=== PATIENT | male | born 1975 | race Caucasian/White ===

== ENCOUNTER 2017-05-26 22:10 | Emergency (ER) | payer MEDICAID, OTHER ==
[~2017-05-26] VITALS: Ht 180.3 cm; Wt 100.2 kg
[2017-05-26 22:14] VITALS: BP_SYST 147
[2017-05-27 00:40] VITALS: BP_SYST 141
== END 2017-05-27 00:40 | disposition home or self-care (01) ==
LOC: SED 22:10
DX: J06.9 Acute upper respiratory infection, unspecified (principal); R03.0 Elevated blood-pressure reading, without diagnosis of hypertension; Z90.89 Acquired absence of other organs
CPT/HCPCS: 36415; 71045; 86710; 99285

== ENCOUNTER 2020-06-15 20:15 | Emergency (ER) | payer OTHER ==
[~2020-06-15] VITALS: Ht 180.3 cm; Wt 104.3 kg
[2020-06-15 20:15] VITALS: BP_SYST 150
--- NOTE | 2020-06-15 20:16 | NUR ---
Came in ER ambulatory this 45 bj old male,AAOX4, breathing spontaneously at room air, not in distress noted, With chief compliants of syncope attack today, known PTSD and thyroid problem. Initial vital signs taken and recorded, stable.
--- NOTE | 2020-06-15 20:41 | NUR ---
Seen and examined by Dr. Sy
--- NOTE | 2020-06-15 20:41 | NUR ---
Patient to ER bed 1 to gown for evaluation. Side rails up. Report given to Tip.
[2020-06-15 20:59] LABS: BASOPHILS % (AUTO) 0.5 % (0.0-2.0); EOSINOPHILS # (AUTO) 0.2 K/uL (0.0-0.4); EOSINOPHILS % (AUTO) 2.1 % (0.0-4.0); HEMATOCRIT 45.3 % (36-54); HEMOGLOBIN 15.4 g/dL (14.0-18.0); LYMPHOCYTES % (AUTO) 32.1 % (20.5-51.5); MEAN CORPUSCULAR HEMOGLOBIN 29 pg (27-31); MEAN CORPUSCULAR HGB CONC 34 % (32-36); MEAN CORPUSCULAR VOLUME 86 fL (79.0-98.0); MONOCYTES # (AUTO) 0.7 K/uL (0.0-1.0); MONOCYTES % (AUTO) 7.8 % (1.7-9.3); NEUTROPHILS # (AUTO) 5.4 K/uL (1.8-7.7); NEUTROPHILS % (AUTO) 57.5 % (40.0-70.0); PLATELET COUNT (AUTO) 191 K/uL (130-430); RED BLOOD CELL COUNT(AUTO) 5.28 MIL/uL (4.2-6.2); WHITE BLOOD COUNT (AUTO) 9.3 K/uL (4.8-10.8)
[2020-06-15 21:13] LABS: ANION GAP 10 (5-15); CALCIUM 9.4 mg/dL (8.4-11.0); CHLORIDE 105 mmol/L (98-107); CREATININE 1.08 mg/dL (0.55-1.30); GLUCOSE 89 mg/dL (70-99); POTASSIUM 3.7 mmol/L (3.5-5.1); SODIUM SERUM 143 mmol/L (136-145); UREA NITROGEN, BLOOD 17 mg/dL (8-21)
[2020-06-15 21:17] LABS: GFR AFRICAN AMERICAN 95 mL/min (>90)
[2020-06-15 21:28] LABS: THYROID STIMULATING HORMONE 1.44 uIu/mL (0.36-3.74)
--- NOTE | 2020-06-15 22:20 | NUR ---
Covid Desirae test done and sent to lab
--- NOTE | 2020-06-15 22:30 | NUR ---
Re-assesed by Dr. Sy, plan for discharge
[2020-06-15 22:55] VITALS: BP_SYST 150
--- NOTE | 2020-06-15 22:55 | NUR ---
Patient given written and verbal discharge instructions and verbalizes understanding. ER MD discussed with patient the results and treatment provided. Patient in stable condition. ID arm band removed. Patient educated on pain management and to follow up with PMD. Pain Scale 0/10. Opportunity for questions provided and answered.
== END 2020-06-15 22:55 | disposition home or self-care (01) ==
LOC: SED 20:15
DX: R55 Syncope and collapse (principal); E07.9 Disorder of thyroid, unspecified; Z20.822 Contact with and (suspected) exposure to COVID-19
CPT/HCPCS: 36415; 80048; 82962; 84443-TC; 84484; 85025; 93005; 99284